=== PATIENT | female | born 1980 | race African-American/Black ===

== ENCOUNTER 2023-04-18 16:51 | Emergency (ER) | payer OTHER ==
[~2023-04-18] VITALS: Ht 165.1 cm; Wt 77.1 kg
[2023-04-18 16:59] VITALS: BP 131/86; RESP 16; TEMP 98.6; O2SAT 97
[2023-04-18 17:00] VITALS: PULSE 97
== END 2023-04-18 23:39 | disposition left against medical advice (07) ==
LOC: ER 16:51
DX: Z53.21 Procedure and treatment not carried out due to patient leaving prior to being seen by health care provider (principal)
CPT/HCPCS: 99281